=== PATIENT | female | born 1985 | race Two or more races ===

== ENCOUNTER → 2019-11-21 | Outpatient (CLI) | payer OTHER ==
--- NOTE | 2019-11-21 15:34 | RAD ---
INDICATION: Reason: PELVIC PAIN / Spl. Instructions: / History: COMPARISON: None. TECHNIQUE: Grayscale and color ultrasound images uterus and adnexa. Transabdominal and transvaginal images obtained. Transvaginal images were needed to better visualize structures that were limited on transabdominal imaging. FINDINGS: Uterus: 80 x 62 x 46 mm. Endometrial Stripe: 3 mm. Right Ovary: 41 x 42 x 36 mm. Left Ovary: 32 x 19 x 15 mm. Vascular flow identified to bilateral ovaries. Right ovarian cyst 36 x 32 x 25 mm. IMPRESSION: * Right ovarian cyst is identified measuring up to 36 mm. Electronically signed by: Tate Perez MD (11/21/2019 3:31 PM) [id number]
== END ==
LOC: EEVIPCON 12:51 → US 12:51
PROVIDERS: ATTEND Preventive Medicine Occupational Medicine
DX: N83.201 Unspecified ovarian cyst, right side (principal)
CPT/HCPCS: 76830; 76856